=== PATIENT | female | born 1965 | race Caucasian/White ===

== ENCOUNTER 2020-12-22 07:30 | Day surgery (SDC) | payer OTHER ==
--- NOTE | 2020-12-10 08:41 | NUR ---
DOS: 2-8-21 STAIRS 1 STEP INTO THE HOME TOLITES: HIG NO RISER NEEDED WALKIN SHOWER AND SHOWER CHAIR HAS FWW AND IT IS PINK WILL TAKE HER TO APPOINTMENTS TILL SHE IS ABLE TO DRIVE.
[~2020-12-22] VITALS: Ht 160 cm; Wt 104.5 kg
[~2020-12-22 07:30] MED LIST: CARBAMAZEPINE200 MG PO; COMBIVENT RESPIM4 GM INH; ESTRADIOL2 MG PO; FISH OIL + D31 EACH PO; GLIPIZIDE10 MG PO; IBUPROFEN400 MG PO; LEVAQUIN500 MG PO; MELOXICAM15 MG PO; MUCINEX DM ER1 EACH PO; MULTI-DAY PLUS1 EAC1 PO; PROMETHAZINE-COD5 ML PO; SYNTHROID200 MCG PO; TEGRETOL200 MG PO
[2020-12-22] MEDS ORDERED: ALEVE220 M1 PO (07:45)
[2020-12-22] MEDS ORDERED: VITAMIN D310 MC4 PO (07:46)
[2020-12-22] MEDS ORDERED: MAGNESIUM200 MG PO (07:47)
[2020-12-22] MEDS ORDERED: MAPAP500 MG PO (07:48)
--- NOTE | 2020-12-22 11:38 | NUR ---
12/22/20 1138 Molly Saldivar 1123 PT TO PACU AWAKE AND ALERT DENIES PAIN OR NAUSEA. SPINAL IS OFF SHE IS ABLE TO FEEL AND MOVE HER TOES ON HER RT FOOT.
--- NOTE | 2020-12-22 11:59 | NUR ---
LE 1150: PT ARRIVES TO UNIT VIA STRETCHER. REPORT RECEIVED AND CARE ASSUMED. VSS, PT ALERT AND ORIENTED. SCDS AND ICE TO OPERATIVE LIMB. PT REPORTS SENSATION TO RIGHT LOWER EXTREMITY, PINK, CAP REFILL <3 SECONDS. NORBERTO PO INTAKE WELL. SNACKS AND ICE WATER PROVIDED. ATTENTIVE AT THE BEDSIDE. NO NEEDS VOICED AT THIS TIME. CALL LIGHT WITHIN REACH
--- NOTE | 2020-12-22 13:15 | NUR ---
1300: PT RESTING IN BED AWAKE, WATCHING TV WITH SPOUSE AT BEDSIDE. PT DENIES ANY NAUSEA AND TOLERATES PO. PT STATES PAIN IN RIGHT KNEE "ACHING" AND WOULD LIKE PAIN MEDS; SEE EMAR. PT WILL USE CALL LIGHT WITH URGE TO VOID, CALL LIGHT WITHIN REACH.
[2020-12-22] MEDS ORDERED: DICLOFENAC SODI75 MG PO (14:48)
[2020-12-22] MEDS ORDERED: ASPIRIN EC325 MG PO (14:48)
[2020-12-22] MEDS ORDERED: OXYCODONE HCL5 MG PO (14:49)
[2020-12-22] MEDS ORDERED: XARELTO10 MG PO (14:49)
[2020-12-22] MEDS ORDERED: SENNA LAX8.6 MG PO (14:49)
[2020-12-22] MEDS ORDERED: GABAPENTIN600 MG PO (14:49)
--- NOTE | 2020-12-22 14:54 | NUR ---
[id number]: LUNCH ORDERED FOR PT AND SPOUSE. [id number]: DR. MENDES STATES TO CHANGE ON-Q PUMP FROM 4 TO 6. [id number]: PT TOLERATES LUNCH WITH NO C\\O NAUSEA. PT STATES PAIN IS "BETTER" AND RATES 3/10 WHEN ASKED. [id number]: PHYSICAL THERAPY IN PT ROOM. PT UP WITH 2-PERSON ASSIST, FWW ADJUSTED TO PT HEIGHT. PT AMBULATES WITH STEADY GAIT TO BATHROOM, ABLE TO VOID APPROX 300 MLS ORANGE URINE. PHYSICAL THERAPY TRANSPORTS PT VIA WC WITH SPOUSE TO MED SURG FOR PHYSICAL THERAPY. 1430: PT BACK TO DS RM 4 FROM PHYSICAL THERAPY. THERAPISTRICKEY STATES THAT PT IS SAFE TO DC HOME TODAY. CRYO CUFF PLACED ON RIGHT KNEE, SPOUSE AT BEDSIDE. PT STATES PAIN HAS INCREASED, MEDS ADMINISTERED PER SCHEDULE. CALL LIGHT WITHIN REACH.
--- NOTE | 2020-12-22 15:10 | NUR ---
PT DEMONSTRATES HOW TO USE INCENTIVE SPIROMETER AFTER EDUCATION. RESTING IN BED WATCHING TV WITH SPOUSE WITH PLANS TO DC TO HOME AROUND 1530.
--- NOTE | 2020-12-22 18:07 | NUR ---
[id number]: DC INSTRUCTIONS PRESENTED TO PT AND SPOUSE, PT ASKS MANY QUESTIONS WHICH ARE ADDRESSED. PT ENCOURAGED TO CALL AFTER HOURS CELL PHONE PROVIDED BY DR. MENDES' OFFICE WITH ANY CONCERNS/PROBLEMS. PT DC FROM DS RM 4 VIA WC TO SPOUSE'S VEHICLE AT MAIN HOSPITAL ENTRANCE TO HOME.
--- NOTE | 2020-12-24 08:45 | OR ---
[facility] [address] [place] [address] Signed DATE OF OPERATION: 12/22/2020 SURGEON: John Saldivar MD PREOPERATIVE DIAGNOSIS: Degenerative joint disease right knee. POSTOPERATIVE DIAGNOSIS: Degenerative joint disease right knee. PROCEDURE PERFORMED: Right total knee arthroplasty with Rafi. BOARDING SPECIALIST: Aleyda Vargas PA-C. Aleyda was present and critical for portions of procedure. ANESTHESIA: Spinal. ESTIMATED BLOOD LOSS: 175 mL. IMPLANTS: Joy Triathlon size 3 femur, size 2 tibia, 10 mm polyethylene and 29 patella. BRIEF HISTORY: Rachell is a 55-year-old female with progressive worsening of osteoarthritis and [id number] appearance on her x-ray. Risks and benefits of operative treatment were discussed with her. Once nonoperative treatment failed. DESCRIPTION OF PROCEDURE: Once consent was obtained, she was taken to the operating room. After adequate anesthesia, she was placed on operating room table, all downside pressure points well padded. The right leg was prepped and draped in the standard sterile fashion. No tourniquet was applied. The knee was approached anteriorly through a longitudinal incision. This was carried through the skin and subcutaneous tissue. Subvastus approach was undertaken. The vastus was split along its distal end and carried through the capsule down to the tibia. The MCL was elevated with a sleeve around the posteromedial corner in a subperiosteal manner. All bleeders were cauterized, as we Electronically Signed By: JOHN SALDIVAR MD 12/24/20 0845 PATIENT NAME: RACHELL BAIRD OPERATIVE REPORT DATE OF : 67 REPORT #: [id number] PHYSICIAN: JOHN SALDIVAR MD PCP: DOROTHEA HOLGUIN MD REPORT IS CONFIDENTIAL AND NOT TO BE RELEASED WITHOUT AUTHORIZATION [facility] [address] [place], [place] [address] Signed went. She was fairly bleeding particularly in the early portions of the case. Her blood pressure was reduced and that helped. The infrapatellar fat pad was excised and the anterior horn of the lateral meniscus was transected and the ACL was transected. The medial meniscus was absent. The knee was flexed and the checkpoints were placed in the tibia in the medial femoral condyle. The computer ray was placed in the medial femoral condyle into the wound. The tibial ray was placed one handbreadth below the tibial tubercle through two separate stab incisions. The leg was then established with the computer and the fine anatomical points were taken. Once this was completed, the soft tissue tension was checked and we placed just another degree of varus into the tibial component and that seemed to balance the knee quite nicely. The robot was then brought in, the straight cuts were made with care taken to protect the soft tissue. The blade was then switched to the angle cut and the last two ankle cuts were made. All bone pieces were removed, as were the osteophytes. The trials were then positioned, knee was taken through range of motion. She had 0 to 130 degrees of flexion. She was stable, although she was to touch loose, so I switched her to a 10 mm polyethylene. The patella was cut sized and drilled for a 29 patella. The distal femoral drill holes were made and the keel punch was used for the tibia. Her bone was fairly soft and I elected to go with a hybrid prosthesis. The bone was pulse lavaged and the dry Ray-Tremayne was placed. The cement was mixed and reached proper consistency, it was placed in the tibial and patellar implants and the tibia. The tibia was impacted in position 1st after thoroughly drying the bone. The excess cement was removed and the polyethylene was snapped into position. The femur was then impacted until it was well seated with excellent mamma logist. The knee was extended and nicely loaded. The patella was then clamped into position, again all overflow cement was removed. The cement was allowed to harden, once hardened sufficiently, the knee was checked, any remaining cement overflow was removed. The knee was quite stable at this point. The periarticular soft tissues were injected with 100 mL ropivacaine Toradol mixture. The computer rays were removed. The knee was pulse lavaged at intervals throughout the procedure. A total of 3 L of normal saline and 100 mL of diluted iodine were used to irrigate. The On-Q pain pump was percutaneously placed into the adductor canal from the suprapatellar pouch. The arthrotomy was then closed using #2 Stratafix, subcutaneous tissue with #1 Stratafix, and skin with 3-0 Monocryl and Steri-Strips. The wound was dressed with a SUMMER wound VAC dressing and David wrap. She tolerated the procedure well. All sponge, needle, and instrument counts were correct. It should also be noted that because she had continued oozing during the surgery, we did give another gram of TXA with improvement. John Saldivar MD Electronically Signed By: JOHN SALDIVAR MD 12/24/20 0845 PATIENT NAME: RACHELL BAIRD OPERATIVE REPORT DATE OF : 67 REPORT #: [id number] PHYSICIAN: JOHN SALDIVAR MD PCP: DOROTHEA HOLGUIN MD REPORT IS CONFIDENTIAL AND NOT TO BE RELEASED WITHOUT AUTHORIZATION [facility] [address] [address] Signed /MODL /[id number] Copies: ~ Electronically Signed By: JONH SALDIVAR MD 12/24/20 0845 PATIENT NAME: RACHELL BAIRD OPERATIVE REPORT DATE OF : 67 REPORT #: [id number] PHYSICIAN: JOHN SALDIVAR MD PCP: DOROTHEA HOLGUIN MD REPORT IS CONFIDENTIAL AND NOT TO BE RELEASED WITHOUT AUTHORIZATION
== END 2020-12-22 16:25 | disposition home or self-care (01) ==
LOC: DS 07:30
PROVIDERS: ATTEND Specialist
PROC: 0SRC0J9 Replacement of Right Knee Joint with Synthetic Substitute, Cemented, Open Approach (ICD-10-PCS; principal; 2020-12-22 08:45)
DX: M17.11 Unilateral primary osteoarthritis, right knee (principal); G40.909 Epilepsy, unspecified, not intractable, without status epilepticus; E74.39 Other disorders of intestinal carbohydrate absorption; E78.5 Hyperlipidemia, unspecified; E03.9 Hypothyroidism, unspecified; R94.31 Abnormal electrocardiogram [ECG] [EKG]; E66.01 Morbid (severe) obesity due to excess calories; Z68.41 Body mass index [BMI] 40.0-44.9, adult; Z88.0 Allergy status to penicillin
CPT/HCPCS: 01402; 64447; 64450; 76942; 97162; C1713; C1776; J0690; J1100; J1885; J2001; J2250; J2405; J2704; J2795; J7121